=== PATIENT | male | born 1945 | race African-American/Black ===

== ENCOUNTER 2021-06-24 06:47 | Day surgery (SDC) | payer OTHER ==
[2021-06-22 09:28] LABS: Potassium 4.4 mmol/L (3.5-5.1)
[2021-06-22 09:38] LABS: Absolute Lymphocytes (CBC) 1.9 K/uL (0.7-4.9); Basophils % 0.7 % (0-1.3); Hematocrit 31.7 % (39.6-49.0); MPV 8.1 fL (7.6-11.3); RBC Red Blood Cell Count 3.85 M/uL (4.33-5.43)
[2021-06-24] MEDS ORDERED: CEFOXITIN 2 GM in NA CHLORIDE 0.9% 100 ML IVPB ONE (08:00)
[2021-06-24] MEDS ORDERED: NA CHLORIDE 0.9% 0 ML ONE (08:01)
[2021-06-24] MEDS ORDERED: CEFOXITIN/NS 1gm 0 GM/0 ML BAG ONE (08:02)
[2021-06-24] MEDS ORDERED: ACETAMINOPHEN 500 MG TAB ONE (08:25)
[2021-06-24] MEDS ORDERED: BUPIVACAINE 0.25% PF 30 ML VIAL ONE (08:29)
[2021-06-24] MEDS ORDERED: NA CHLORIDE 0.9% 500 ML ONE (08:35)
[2021-06-24] MEDS ORDERED: MIDAZOLAM HCL 2 MG/2 ML INJ ONE (09:10)
[2021-06-24] MEDS ORDERED: FENTANYL CITR 100 MCG/2 ML ONE (09:10)
[2021-06-24] MEDS ORDERED: LIDOCAINE 2% MPF 5 ML VIAL ONE (09:10)
[2021-06-24] MEDS ORDERED: propofoL 200 MG/20 ML VIAL IV ONE ×2 (09:11→10:19)
[2021-06-24] MEDS ORDERED: GLYCOPYRROLATE 0.2 MG/ML SYR ONE ×3 (09:25→10:25)
[2021-06-24] MEDS ORDERED: ROCURONIUM 50 MG/5 ML VIAL IV ONE (09:25)
[2021-06-24] MEDS ORDERED: ONDANSETRON 4 MG/2 ML VIAL ONE ×2 (10:03→11:21)
[2021-06-24] MEDS ORDERED: NEOSTIGMINE 1 MG/ML -5 ML ONE (10:07)
--- NOTE | 2021-06-24 10:36 | P.OP ---
Preoperative diagnosis: History of Choledocholithiasis Postoperative diagnosis: History of Choledocholithiasis Primary procedure: Laparoscopic cholecystectomy Secondary procedure: ICG Cholangiography Anesthesia: GETA & Local Estimated blood loss: <10cc Specimen: Gallbadder Findings: distended gallbladder with stones Complications: None (given a second) Transferred to: Recovery Room Condition: Good
[2021-06-24] MEDS ORDERED: EPHEDRINE SULF 50 MG/ML VIAL ONE (10:37)
[2021-06-24] MEDS: MORPHINE 4 MG/ML SYR ONE ×2 (10:56→11:05)
[2021-06-24] MEDS ORDERED: SUGAMMADEX SODIUM 200 MG/2 ML VIAL IV ONE (10:58)
[2021-06-24] MEDS ORDERED: NA CHLORIDE 0.9% 1,000 ML ONE (11:15)
[2021-06-24 11:18] VITALS: O2SAT 100
[2021-06-24] MEDS ORDERED: MORPHINE 4 MG/ML SYR ONE (11:35)
--- NOTE | 2021-06-24 11:40 | OP ---
Date of Procedure: 06/24/2021 Surgeon: Emeka Segovia MD, Preoperative Diagnosis: History of choledocholithiasis. Postoperative Diagnosis: History of choledocholithiasis. Procedure Performed: 1.Laparoscopic cholecystectomy. 2.ICG cholangiography. Anesthesia: General endotracheal plus local with 0.25% Marcaine without epinephrine. Estimated Blood Loss: Less than 10 mL. Specimen: Gallbladder. Findings: Distended gallbladder with stones. Complications: None. The patient is transferred to the recovery room in good condition. Procedure In Detail: After informed consent was obtained, the patient was brought to the operating r oom and prepped and draped in the usual sterile fashion. After adequate anesthesia was achieved, the supraumbilical area was anesthetized with 0.25% Marcaine, sharply incised. A 5-mm 0-degree optical trocar was introduced in the abdomen without complication. Insufflation was obtained to 15 mmHg at t his time. No injury to vital structures upon entry into the abdomen. The patient was positioned to head-up position. I then placed 3 additional trocars, 1 in the epigastrium, 2 in the right upper nery drant. All of these were similarly anesthetized, sharply incised. A 5-mm trocar was placed under di rect visualization without complication. The umbilical trocar was upsized to a 12 mm under direct vi sualization without any complication. The patient was positioned to gallbladder position, head up ri ght-side up position. Ratcheted graspers were used to grasp the patient's gallbladder, placed toward s the patient's right shoulder. Dissection continued down to the Nazia pouch of the gallbladder, did dissect, 2 structures identified, both the cystic duct and the cystic artery. There was an unusu al anatomic variant, and that there was an anterior course of a cystic artery, which ran anterior inf erior to the cystic duct. ICT cholangiography was used to help confirm the position of the anatomic structures including the cystic duct, the common duct confluence. The 2 structures skeletonized, shaquille ntified as the cystic duct and the cystic artery. Both of these were doubly titanium clipped and sin gly on the distal aspect with titanium clips. I then used Endo-Brent to ligate these 2 structure. The gallbladder was removed from the hepatic fossa without complication. There was minimal spillage of bile throughout the procedure, was suctioned out through the gallbladder. The gallbladder was rem clare from the hepatic fossa, and sent off for pathologic examination after being placed in an EndoCat ch bag and removed through the umbilical trocar. Reinsufflation was obtained. The area was copiousl y irrigated and suctioned out completely dry. The clips were found to be in good anatomic position. There was no bleeding. No hemostatic measures required. The hepatic fossa was clean also without a ny hemostatic measures required. The patient is positioned back in neutral position. The remaining fluid suctioned out. The umbilical trocar site was then closed using a Miguel-Nelsy suture passer with 0 Vicryl for the fascia with good approximation of tissues. The remaining trocar sites were th en inspected. No hemostatic measures required. The abdomen was completely desufflated under direct vision without any complications. Remaining trocars removed. All skin incisions were copiously irri gated and closed with 4-0 Monocryl in a running fashion. Dermabond was placed over top. The patient tolerated the procedure well without any complications and transferred to PACU in good condition. A ll counts were correct at the end of the case. CAITY/DAVON Voice ID: [id number] Report ID: [id number]
[2021-06-24] MEDS ORDERED: HYDROCODONE/APAP 7.5/325 MG TAB ONE (12:10)
[2021-06-24 13:28] VITALS: BP 144/62; TEMP 97.5
== END 2021-06-24 12:45 | disposition home or self-care (01) ==
LOC: OR 06:47
PROVIDERS: ATTEND Surgery
PROC: BF03YZZ Plain Radiography of Gallbladder and Bile Ducts using Other Contrast (ICD-10-PCS; 2021-06-24)
PROC: 0FT44ZZ Resection of Gallbladder, Percutaneous Endoscopic Approach (ICD-10-PCS; principal; 2021-06-24 08:30)
DX: K80.10 Calculus of gallbladder with chronic cholecystitis without obstruction (principal); N18.6 End stage renal disease; E11.9 Type 2 diabetes mellitus without complications; I10 Essential (primary) hypertension; Z20.822 Contact with and (suspected) exposure to COVID-19
CPT/HCPCS: 85025; 80048; 36415; 82947; 88304; 47563; U0003; J2704 ×2; J2250; J3010; J2710; J7040; J7030; J0694; J2405 ×2

== ENCOUNTER 2021-08-05 07:23 | Day surgery (SDC) | payer OTHER ==
[2021-07-31 11:33] LABS: Basophils % 0.8 % (0-1.3); Hematocrit 34.2 % (39.6-49.0); Lymphocytes % 24.5 % (15.3-44.8); MPV 7.7 fL (7.6-11.3); RBC Red Blood Cell Count 4.13 M/uL (4.33-5.43)
[2021-07-31 11:50] LABS: Potassium 4.5 mmol/L (3.5-5.1)
[2021-08-05] MEDS ORDERED: CEFAZOLIN/NS 1gm 1 GM/50 ML BAG ONE (08:30)
[2021-08-05] MEDS ORDERED: NA CHLORIDE 0.9% 1,000 ML ONE ×2 (08:30→09:21)
[2021-08-05] MEDS ORDERED: LIDOCAINE 2% MPF 5 ML VIAL ONE (09:15)
[2021-08-05] MEDS ORDERED: ROCURONIUM 50 MG/5 ML VIAL IV ONE (09:15)
[2021-08-05] MEDS ORDERED: FENTANYL CITR 100 MCG/2 ML ONE (09:15)
[2021-08-05] MEDS ORDERED: propofoL 200 MG/20 ML VIAL IV ONE ×2 (09:15→10:10)
[2021-08-05] MEDS ORDERED: BUPIVACAINE 0.25% PF 30 ML VIAL ONE (09:19)
[2021-08-05] MEDS ORDERED: ONDANSETRON 4 MG/2 ML VIAL ONE (09:20)
[2021-08-05] MEDS ORDERED: HEPARIN 500 UNIT/5 ML SYR IV ONE (09:43)
[2021-08-05] MEDS ORDERED: GLYCOPYRROLATE 0.2 MG/ML SYR ONE ×2 (10:46→10:59)
[2021-08-05] MEDS ORDERED: dexAMETHasone 10 MG/ML VIAL ONE (10:48)
[2021-08-05] MEDS ORDERED: NEOSTIGMINE 1 MG/ML -5 ML ONE (10:58)
--- NOTE | 2021-08-05 11:00 | P.OP ---
Preoperative diagnosis: End Stage Renal Disease Postoperative diagnosis: End Stage Renal Disease Primary procedure: Laparoscopic placement of double cuffed peritoneal dialysis catheter Anesthesia: GETA + Local Estimated blood loss: <5cc Specimen: none Findings: 850cc returned Complications: None Drain(s): Other (Jeong Double Cuffed Peritoneal dialysis catheter) Transferred to: Recovery Room Condition: Good
[2021-08-05 13:24] VITALS: BP 152/63; TEMP 96.8; O2SAT 97
--- NOTE | 2021-08-05 21:24 | OP ---
Date of Procedure: 08/05/2021 Surgeon: Emeka Segovia MD, Preoperative Diagnosis: End-stage renal disease. Postoperative Diagnosis: End-stage renal disease. Procedure Performed: Laparoscopic placement of double-cuffed peritoneal dialysis catheter. Anesthesia: General endotracheal plus local with 0.25% Marcaine. Estimated Blood Loss: Less than 5 cc. Specimen: None. Findings: 950 cc of fluid returned. Complications: None. Drains/implants: Merit double-cuffed peritoneal dialysis catheter standard placed. Disposition: The patient transferred to recovery room in good condition. Procedure In Detail: After informed consent was obtained, the patient was brought to the operating room, prepped and draped in the usual sterile fashion. After adequate anesthesia was achieved, the patient had been pre-marked for left abdominal peritoneal dialysis catheter placement. He then remained in neutral position. At this point, I found an area of the left lower quadrant to anesthetize the skin appropriately and placed a 5-mm trocar under direct visualization without complication in the left lower quadrant. Insufflation was obtained to 15 mmHg at this time. There was no injury to vital structures upon entering the abdomen. I then made an incision overlying the stencil leonardo for insertion of a peritoneal dialysis catheter using the introducer sheath. The introducer sheath was placed deep in the pelvis and toward the coccyx. At this point, I performed a dilatation of this tract and placed the catheter into the pelvis without rotation curling it into the cul-de-sac of the pelvis and introduced the distal cuff into the rectus muscle. At this point, the cuff was in good position. I flushed it and found to be patent at this point. I then placed the tunneling device, made a separate stab incision at an access site and passed the catheter through the exit site and pulled the catheter stiff to ensure a good clean tract was obtained. At this point, air was emanating from the catheter. I then placed a cap on the end, infused 1 L of saline and returned 850 cc of saline. The patient's position neutral position and slightly head up. Additional fluid was obtained at this point. I then packed the catheter with heparin and visualized in the pelvis in a good position. There was some perihepatic fluid. As such, I feel that the position of the catheter was adequate. 4 cc of heparin was placed into the catheter at this point and the catheter remained in place. I then completed desufflated the abdomen under direct visualization, removed the trocars under direct visualization without complication. I then copiously irrigated all skin incisions and closed with a combination of 3-0 Vicryl deep dermal and 4-0 Monocryl subcutaneous closure with 4-0 Monocryl closure. Dermabond was placed over top. The patient tolerated the procedure well without evidence of complication and transferred to PACU in good condition. All counts were correct at the end of the case. CAITY/DAVON Voice ID: [id number] Report ID: [id number] MTDD
== END 2021-08-05 12:50 | disposition home or self-care (01) ==
LOC: OR 07:23
PROVIDERS: ATTEND Surgery
PROC: 0WHG43Z Insertion of Infusion Device into Peritoneal Cavity, Percutaneous Endoscopic Approach (ICD-10-PCS; principal; 2021-08-05 09:15)
DX: N18.6 End stage renal disease (principal); Z99.2 Dependence on renal dialysis; Z20.822 Contact with and (suspected) exposure to COVID-19
CPT/HCPCS: 85025; 80048; 36415; 82947 ×2; 49324; U0002; J2704 ×2; J3010; J1100; J2710; J1642; J0690; J7030 ×2; J2405

== ENCOUNTER 2021-09-25 08:19 | Day surgery (SDC) | payer OTHER ==
[2021-09-21 11:16] LABS: Absolute Lymphocytes (CBC) 1.9 K/uL (0.7-4.9); Hematocrit 33.3 % (39.6-49.0); Lymphocytes % 21.4 % (15.3-44.8); MPV 8.3 fL (7.6-11.3); RBC Red Blood Cell Count 4.08 M/uL (4.33-5.43)
[2021-09-21 11:22] LABS: Potassium 4.1 mmol/L (3.5-5.1)
[2021-09-25] MEDS ORDERED: CEFAZOLIN/NS 1gm 1 GM/50 ML BAG ONE (08:55)
[2021-09-25] MEDS ORDERED: NA CHLORIDE 0.9% 1,000 ML ONE (08:55)
[2021-09-25] MEDS ORDERED: propofoL 200 MG/20 ML VIAL IV ONE (10:41)
[2021-09-25] MEDS ORDERED: MIDAZOLAM HCL 2 MG/2 ML INJ ONE (10:41)
[2021-09-25] MEDS ORDERED: FENTANYL CITR 100 MCG/2 ML ONE (10:41)
[2021-09-25] MEDS ORDERED: ROCURONIUM 50 MG/5 ML VIAL IV ONE (10:41)
[2021-09-25] MEDS ORDERED: LIDOCAINE 1% MPF 5 ML VIAL ONE (10:41)
[2021-09-25] MEDS ORDERED: BUPIVACAINE 0.25% PF 10 ML VIAL ONE (10:52)
[2021-09-25] MEDS: HEPARIN 500 UNIT/5 ML SYR IV ONE ×2 (11:35→12:10)
[2021-09-25] MEDS ORDERED: GLYCOPYRROLATE 0.2 MG/ML SYR ONE ×3 (11:40→11:58)
[2021-09-25] MEDS ORDERED: ONDANSETRON 4 MG/2 ML VIAL ONE (11:52)
[2021-09-25] MEDS ORDERED: NEOSTIGMINE 1 MG/ML -5 ML ONE (11:53)
[2021-09-25] MEDS ORDERED: EPHEDRINE SULF 50 MG/ML VIAL ONE (12:05)
[2021-09-25] MEDS ORDERED: NS 0.9% VIAL 10 ML ONE (12:05)
--- NOTE | 2021-09-25 12:16 | P.OP ---
Preoperative diagnosis: Peritoneal Catheter Dysfunction Postoperative diagnosis: Peritoneal Catheter Dysfunction Primary procedure: Exploratory Laparoscopy Secondary procedure: Laparoscopic Replacement of Peritoneal Dialysis Catheter Other procedure(s): removal of non-functional peritoneal dialysis catheter Anesthesia: GETA + Local Estimated blood loss: <5cc Specimen: catheter for ID only Findings: PD catheter was buried in adhesions, adhesions of small bowel to midline Complications: None Implants: Jeong Double Cuffed Peritoneal Dialysis Catheter placed Transferred to: Recovery Room Condition: Good
[2021-09-25] MEDS: MORPHINE 4 MG/ML SYR ONE ×2 (12:40→12:46)
[2021-09-25] MEDS: HYDROMORPHONE HCL 1 MG/ML INJ ONE ×2 (12:51→12:57)
[2021-09-25] MEDS ORDERED: HYDROMORPHONE HCL 1 MG/ML INJ ONE (13:03)
--- NOTE | 2021-09-25 13:06 | OP ---
Date of Procedure: 09/25/2021 Surgeon: Emeka Segovia MD, Preoperative Diagnosis: Peritoneal catheter dysfunction. Postoperative Diagnosis: Peritoneal catheter dysfunction. Procedure Performed: 1.Exploratory laparoscopy. 2.Laparoscopic replacement of peritoneal dialysis catheter on the right abdomen. 3.Removal of nonfunctional peritoneal dialysis catheter. Anesthesia: General endotracheal with local, 0.5% Marcaine without epinephrine. Estimated Blood Loss: Less than 5 mL. Specimen: Catheter for ID only. Findings: 1.Previously placed peritoneal dialysis catheter in left abdomen had significant scar tissue formed near its entry site and tracking into the abdomen, which included tracking of the catheter into the p shelbi. However, it was encased within the bladder, omental attachments and adhesions from small madai l quite firmly. 2.There were adhesions of the small bowel to the midline but very few and this would not preclude pl acement of a right-sided peritoneal dialysis catheter. Complications: None immediate. Implants: Merit double cuffed peritoneal dialysis catheter placed. Condition: The patient transferred to recovery room in good condition. Procedure In Detail: After informed consent was obtained, the patient brought to the operating room, prepped and draped in the usual sterile fashion. After adequate anesthesia was achieved, left upper quadrant area was anesthetized with 0.5% Marcaine, sharply incised, and a 5 mm 0-degree optical troc ar was introduced in the abdomen without complication. Insufflation was obtained to 15 mmHg at this time. There was no injury to vital structures upon entry to the abdomen. I inspected the area of th e previously placed peritoneal dialysis catheter in the left abdomen, which was found to be quite bur ied heavily in intraabdominal adhesions and tracking down into the pelvis being sandwiched between th e bladder and scar tissue from the small bowel mesentery on the left side of the abdomen, therefore p recluding flow of the catheter and function. At this point, I opted to place an additional trocar in the left lower quadrant. This was similarly anesthetized, sharply incised. A [address] d under direct visualization without complication. The patient was positioned in head down position. The patient had been previously stenciled for placement of a large Merit peritoneal dialysis cathet er on the right abdomen should this be necessary. At this point, I placed an incision after appropri ately anesthetizing the skin on the right side of the abdomen along the midportion of the rectus rodriguez th as the pre-stencil was marked, cut down through subcutaneous tissues and fat and abutting up to th e rectus muscle sheath/anterior rectus sheath. At this point, the introducer sheath was placed into the abdomen, aiming towards the patient's pelvis slightly to the right of midline orienting the strip e on the catheter to allow for proper curvature intraperitoneally towards midline. I then performed sequential dilatation of the tract and the introducer sheath and placed the catheter as described wit h a curl towards the midline. At this point, the distal cuff was placed into the rectus muscle just beyond the anterior rectus sheath and the tunneling device was attached to the end of the catheter, w hich was emanating air and some fluid at this point. I then passed the catheter using the tunneling device through the premarked and precut area of the right abdominal wall to allow for proper placemen t of the cuff as well as at the exit site. The catheter was brought out. It continued to emanate fl uid and air. It was capped at this point. At this point, I irrigated the skin and placed the patien t in neutral position, infused 1 L of saline. At this point the patient remained in the neutral posi tion, and after 1 L of saline was infused, the bag was dropped to the floor. Pneumoperitoneum remain ed off throughout this portion of procedure and the entire liter was returned of fluid from the perit wilks cavity. At this point, the catheter tubing was removed and the peritoneal dialysis catheter wa s capped at this point and packed with heparin. 5 cc placed into the catheter tubing and the cathete r was capped at this point. Re-insufflation at this point was performed and I inspected the area, wh ich was found to be in good position in the pelvis. At this point, I removed some scar tissue off th e anterior abdominal wall to allow for positioning and removal of the previously placed left-sided pe ritoneal dialysis catheter. Peritoneal dialysis catheter was brought on the field. It did have some fibrinous buildup in the center of the tubing for approximately half the length of the tubing. At t his point, I dilated up the entry site, brought the cuff out, and using a combination of blunt dissec tion, electrocautery, removed the proximal skin cuff from the exit site. At this point, I anesthetiz ed the skin and cut down on the distal cuff of the previously placed peritoneal dialysis catheter, br ought the catheter cuff into field of view and then used a combination of blunt dissection, electroca utery to remove this as well. The catheter was then cut, removed, and the entire tract was irrigated . I closed the insertion site under direct visualization using a Tamiko suture passer with 0 Vicryl interrupted fashion. Good approximation of tissues. I then inspected the abdomen one last time and had good hemostasis. No hemostatic measures required. The catheter was in good position. The abdomen was desufflated under direct visualization without complication. Remaining trocars remov ed. All skin incisions were then copiously irrigated and closed with 4-0 Monocryl with the exception of the previous proximal cuff site, which was oversewn with interrupted 3-0 nylon suture. Sterile d ressing was then placed over top. In addition Dermabond. The patient tolerated the procedure well w ithout complication and transferred to PACU in good condition. All counts correct at end of case. CAITY/HUYENL Voice ID: [id number] Report ID: [id number]
[2021-09-25] MEDS: FENTANYL CITR 100 MCG/2 ML ONE ×3 (13:12→13:27)
[2021-09-25] MEDS ORDERED: HYDROCODONE/APAP 5/325 MG TAB ONE (14:08)
[2021-09-25 15:20] VITALS: BP 147/72; TEMP 97.1; O2SAT 100
== END 2021-09-25 15:17 | disposition home or self-care (01) ==
LOC: OR 08:19
PROVIDERS: ATTEND Surgery
PROC: 0WHG33Z Insertion of Infusion Device into Peritoneal Cavity, Percutaneous Approach (ICD-10-PCS; 2021-09-25)
PROC: 0WPG33Z Removal of Infusion Device from Peritoneal Cavity, Percutaneous Approach (ICD-10-PCS; principal; 2021-09-25 10:45)
DX: T85.611A Breakdown (mechanical) of intraperitoneal dialysis catheter, initial encounter (principal); Z20.822 Contact with and (suspected) exposure to COVID-19
CPT/HCPCS: 85025; 80048; 36415; 82947; 88300; 49324; U0002; J2704; J3010 ×2; J1170 ×2; J2710; J1642; J0690; J7030; J2405; J2250